=== PATIENT | female | born 1960 | race Caucasian/White ===

== ENCOUNTER → 2018-05-26 | Day surgery (SDC) | payer BC ==
[~2018-05-26] MED LIST: Buffered Lidocaine 0.9% SYRIN* 5 ML/SYR SYRINGE INTRADERM ONE; Bupivacaine 0.25% SDV PF* 10 ML VIAL INJ ONE; Bupivacaine 0.5% W/EPI SDV* 30 ML VIAL ONE; Bupivacaine 0.5%* 50 ML VIAL ONE; Dexamethasone IV* 4 MG/ML 1 ML (4 MG) IV SLOW PU ONE; Dexamethasone IV* 4 MG/ML 1 ML (4 MG) ONE; DiMENhydriNATE IV* 50 MG/ML VIAL IV PUSH PRN; EPHEDrine (Pressors)* 50 MG/ML VIAL ONE; Famotidine IV* 10 MG/ML 2 ML (20 mg) IV ONE; Famotidine IV* 10 MG/ML 2 ML (20 mg) ONE; HYDROcodone/ACETAMIN 5-325 MG* 1 TAB PO PRN; Ketorolac INJ* 30 MG/ML 1 ML VIAL ONE; Lactated Ringers 1000 ML Bag* 1,000 ML IV SCH; Lidocaine 2% PF * 5 ML VIAL ONE; Midazolam* 1 MG/ML 2 ML VIAL (2 MG) ONE; Naloxone* 0.4 MG/ML 1 ML VIAL IV PRN; Ondansetron INJ* 2 MG/ML VIAL ONE; Propofol* 10 MG/ML 20 ML BTL ONE; ceFAZolin 2 GM PREMIX in ORs 2 GM/50 ML BAG IVPB ONE; fentaNYL* 50 MCG/ML 2 ML VIAL (100 MCG VIAL) ONE; oxyCODONE/Acetamin 5/325 MG* TAB ONE; oxyCODONE/Acetamin 5/325 MG* TAB PO PRN
[2018-05-26] MEDS: fentaNYL* 50 MCG/ML 2 ML VIAL (100 MCG VIAL) IV PRN ×2 (09:14→09:53)
--- NOTE | 2018-05-26 09:15 | OP ---
Operative Report - Blank - Operative Report Date of Operation: 05/26/18 Note: PATIENT: Suzy Hayward DATE OF : 1960 DATE OF SURGERY: 05/26/2018 SURGEON: Benjamin Hammond MD PSYCHOLOGICAL STRESS EVALUATOR: YARON Davis, whos assistance was necessary for positioning, retraction, help with instrumentation, and closure. ANESTHESIOLOGIST: Dr. Clint Kowalski PREOPERATIVE DIAGNOSIS: Right ankle painful hardware and peroneal tenosynovitis. POSTOPERATIVE DIAGNOSIS: Right ankle painful hardware and peroneal tenosynovitis. OPERATION: 1. Right ankle removal of deep hardware 2. Right peroneal tendon exploration with peroneus longus and peroneus brevis tenolysis. ANESTHESIA: LMA IMPLANTS: none TOURNIQUET TIME: Less than 1 hour with a well-padded thigh tourniquet SPECIMENS: none ESTIMATED BLOOD LOSS: minimal COMPLICATIONS: none STATUS: Stable from the operating room to the recovery room and then home. INDICATIONS FOR PROCEDURE: Suzy. Both operative and non operative treatment alternatives were reviewed. Further, the nature and risks of surgery were reviewed in careful detail, in the office as well as the pre-operative holding area. Our discussions regarding the risks of surgery included, but were not limited to, infection, wound problems, nerve injury, neuroma, RSD, persistent symptoms, blood clot, failure of the surgery, and even the remote chance of catastrophic complication. DESCRIPTION OF PROCEDURE: The patient was seen in the preoperative holding unit and informed written consent was obtained. The appropriate extremity was marked. The patient was then brought to the operating room and carefully positioned on the operating room table. Anesthesia was induced. All bony prominences were padded with great care. A well-padded thigh tourniquet was placed. A chlorhexidine based pre- scrub was performed followed by a chloraprep prep and drape in standard sterile fashion. A surgical safety pause was then conducted in which we confirmed the appropriate patient, extremity, planned procedure, availability of equipment, indication and administration of prophylactic antibiotics, and DVT prophylaxis in the form of a compression boot on the non-surgical extremity. An Esmarch exsanguination of the limb was then performed and the tourniquet inflated. I utilized the prior lateral incision over the distal fibula. I carried the dissection down through the soft tissue to the level of the periosteum and superior peroneal retinaculum (SPR) with care taken to protect the sural nerve, which was not visualized during the procedure. I carefully incised the SPR off of the posterior fibula to expose the peroneal tendons and the posterior fibular hardware. I exposed the plate and screws and removed them. I then dissected out the screw heads for the two A to P lag screws and removed them as well. I then explored the peroneal tendons. There was some fraying of the peroneus longus tendon posterior to the distal fibula where it appeared to have been rubbing on the plate and screws. This was <10% of the tendon so it was debrided as it was not a discrete, repairable tear. There was a large amount of inflamed tenosynovium and a tenolysis was performed for both the peroneus brevis and peroneus longus tendons. Additionally, there was a low-lying peroneus brevis muscle belly which was debrided and excised. At this point, I carefully inspected the peroneal groove at the posterior aspect of the fibula. This was deemed to have adequate depth so the decision was made not to perform a groove deepening procedure. So at this point I carefully planned out the repair of the superior peroneal retinaculum. I then reduced the tendons and they sat nicely in the retro-fibular groove. The wound was copiously irrigated. I repaired the SPR utilizing #1 Vicryl suture in a transosseous horizontal mattress suture pattern. I utilized multiple sutures for this repair, appropriately tensioning the SPR. I was able to pass a [place] under the repaired SPR without difficulty after the repair. We then irrigated the wound copiously again. The wound was closed in a layered fashion utilizing 3-0 Monocryl and 3-0 nylon. A sterile dressing was then applied and the ankle was splinted in a neutral position. All needle and sponge counts were correct at the end of the case. The patient was awakened from anesthesia and transferred to the recovery room in stable condition. There were no complications. ATTESTATION: I attest I was present and scrubbed and performed the critical portions of the procedure myself. POST-OPERATIVE PLAN: The patient will remain [id number] for an anticipated duration of 4 weeks. Follow up will be in 2 weeks for likely suture removal and transition into a short leg cast.
[2018-05-26 10:47] VITALS: BP 108/56
== END | disposition home or self-care (01) ==
LOC: OR 05:35
PROVIDERS: ATTEND Orthopaedic Surgery
DX: T84.84XA Pain due to internal orthopedic prosthetic devices, implants and grafts, initial encounter (principal); Y83.1 Surgical operation with implant of artificial internal device as the cause of abnormal reaction of the patient, or of later complication, without mention of misadventure at the time of the procedure; M65.831 Other synovitis and tenosynovitis, right forearm; Z87.891 Personal history of nicotine dependence; I10 Essential (primary) hypertension; E78.5 Hyperlipidemia, unspecified
CPT/HCPCS: 76000; 88300; A9270-GY; J0690; J1100; J1885; J2250; J2405; J2704; J3010; J3490

== ENCOUNTER 2018-12-30 20:18 | Emergency (ER) | payer BC, OTHER ==
[2018-12-30] MEDS ORDERED: Meclizine TAB* 12.5 MG PO ONE ×2 (20:48→21:52)
[2018-12-30] MEDS ORDERED: Ondansetron ODT TAB* 4 MG PO ONE ×2 (20:48→21:53)
--- NOTE | 2018-12-30 20:55 | UC ---
Dizzy HPI HPI Summary: 58-year-old female comes in with a chief complaint of dizziness. Several days ago she had some spinning type dizziness when she first woke up and went away. Yesterday and the exercise class she had a sudden onset of spinning dizziness that did get better with rest and not moving. This morning when she woke up she rolled over and had severe dizziness which once again improved with not moving. She tried the Anju maneuver which only made it worse. She denies any focal weakness or numbness. No complaint of any difficulty with speech or vision. Patient has had vertigo in the past and this reminds her of vertigo. No runny nose no rhinorrhea no ear pain no sore throat. - History Of Current Complaint Chief Complaint: UCDizziness Stated Complaint: DIZZY Time Seen by Provider: 12/30/18 20:30 Pain Intensity: 0 - Allergies/Home Medications Allergies/Adverse Reactions: Allergies Allergy/AdvReac Type Severity Reaction Status Date / Time No Known Allergies Allergy Verified 12/30/18 20:33 Home Medications: Home Medications Meclizine HCl [Dramamine Less Drowsy] 50 mg PO Q12HR PRN 12/30/18 [History Confirmed 12/30/18] PMH/Surg Hx/FS Hx/Imm Hx Previously Healthy: Yes Endocrine History: Dyslipidemia Cardiovascular History: Hypertension - Surgical History Surgical History: Yes Surgery Procedure, Year, and Place: cholecystectomy. ankle surgery - Family History Known Family History: Positive: Non-Contributory - Social History Alcohol Use: Occasionally Alcohol Amount: social Substance Use Type: None Smoking Status (MU): Former Smoker Amount Used/How Often: 1-2 packs a day for 6 yrs When Did the Patient Quit Smoking/Using Tobacco: 1984 Review of Systems All Other Systems Reviewed And Are Negative: Yes Constitutional: Positive: Other - SEE HPI Skin: Positive: Negative Eyes: Positive: Negative ENT: Positive: Negative Respiratory: Positive: Negative Cardiovascular: Positive: Negative Gastrointestinal: Negative: Vomiting Genitourinary: Positive: Negative Motor: Positive: Negative Neurovascular: Positive: Negative Musculoskeletal: Positive: Negative Neurological: Positive: Other - SEE HPI Psychological: Positive: Negative Is Patient Immunocompromised?: No Physical Exam Triage Information Reviewed: Yes Appearance: Well-Appearing, No Pain Distress, Well-Nourished, Other: - On examination patient lying on her left side with a towel covering her eyes. She reports that any kind of movement makes the vertigo worse. This did limit initial examination. Vital Signs: Initial Vital Signs Temp 98.7 F 12/30/18 20:35 Pulse 70 12/30/18 20:35 Resp 18 12/30/18 20:35 BP 128/43 12/30/18 20:35 Pulse Ox 99 12/30/18 20:35 Vital Signs Reviewed: Yes Neck: Positive: Supple Respiratory: Positive: No respiratory distress Musculoskeletal: Positive: Strength Intact, ROM Intact Neurological: Positive: Alert Psychological: Positive: Age Appropriate Behavior Skin Exam: Normal Dizzy Course/Dx - Course Course Of Treatment: Patient was given Zofran 4 mg ODT by mouth and also meclizine 25 mg by mouth here in clinic. She did have some improvement of symptoms. We discussed the possibility of vertigo being a sign of a stroke. Patient has no focal neurologic deficits at this time. We discussed that if she did not improve or if she worsened she needed to go the emergency department for further evaluation for the possibility of a stroke. Her daughter was with her at the time. - Differential Dx/Diagnosis Provider Diagnosis: Dizziness Discharge - Sign-Out/Discharge Documenting (check all that apply): Patient Departure All imaging exams completed and their final reports reviewed: Yes - Discharge Plan Condition: Stable Disposition: HOME Prescriptions: Meclizine HCl [Motion Sickness Relief] 25 mg PO Q6HR PRN #20 tablet PRN Reason: Dizziness Ondansetron ODT TAB* [Zofran 4 MG Odt TAB*] 4 mg PO Q6H PRN #10 tab.odt PRN Reason: Nausea Patient Education Materials: Vertigo (ED), Dizziness (ED) Referrals: Liz Norton MD [Primary Care Provider] - Additional Instructions: FOLLOW UP WITH YOUR DOCTOR IF NOT COMPLETELY IMPROVED. GO TO THE EMERGENCY DEPARTMENT IF YOUR CONDITION DOES NOT IMPROVE OR WORSENS; WEAKNESS, NUMBNESS, DIFFICULTY WITH VISION OR SPEECH OR ANY QUESTIONS OR CONCERNS. - Billing Disposition and Condition Condition: STABLE Disposition: Home
[2018-12-30 22:15] VITALS: BP 141/77
== END 2018-12-30 22:14 | disposition home or self-care (01) ==
LOC: UCEAST 20:18
DX: R42 Dizziness and giddiness (principal); E78.5 Hyperlipidemia, unspecified; I10 Essential (primary) hypertension; Z87.891 Personal history of nicotine dependence
CPT/HCPCS: 99213; A9270-GY; G0463